=== PATIENT | male | born 1935 | race Caucasian/White ===

== ENCOUNTER 2024-05-07 06:08 | Observation (INO) ==
[2024-04-29 14:15] LABS: Basophils # (Auto) 0.03 K/mcL (0.00-0.30); Basophils % (Auto) 0.4 % (0.0-2.0); Eosinophils # (Auto) 0.43 K/mcL (0.00-0.70); Eosinophils % (Auto) 6.4 % (0.0-7.0); Hematocrit 41.3 % (40.1-51.0); Hemoglobin 13.7 g/dL (13.7-17.5); Lymphocytes % (Auto) 22.4 % (15.5-49.0); Mean Cell Volume 95.2 fL (80.0-100.0); Mean Corpuscular HGB Conc 33.2 g/dL (31.0-36.0); Mean Platelet Volume 9.4 fL (8.8-12.5); Monocytes # (Auto) 0.68 K/mcL (0.10-0.90); Monocytes % (Auto) 10.2 % (1.0-12.0); Neutrophils % (Auto) 60.3 % (38.0-78.0); Platelet Count 198 K/mcL (140-440); RBC 4.34 M/mcL (4.63-6.08); Red Cell Distribution Width 12.8 % (11.5-14.5); WBC 6.7 K/mcL (4.5-11.0)
[2024-04-29 14:34] LABS: Blood Urea Nitrogen 27 mg/dL (8-23); Calcium 9.6 mg/dL (8.6-10.4); Carbon Dioxide 28 mmol/L (22-30); Chloride 105 mmol/L (96-108); Glomerular Filtration Rate 38; Glucose 133 mg/dL (70-105); Potassium 4.1 mmol/L (3.3-5.1); Sodium 143 mmol/L (133-145)
[2024-04-29 17:05] LABS: Estimated Average Glucose(eAG) 128 mg/dL; Hemoglobin A1C 6.1 % Hgb (4.0-6.0)
[2024-05-07] MEDS ORDERED: DEXAMETHASONE 10 MG/ML VIAL ONE (06:52)
[2024-05-07] MEDS ORDERED: KETAMINE 50 MG/ML Syringe IV ONE (06:52)
[2024-05-07] MEDS ORDERED: PROPOFOL 200 MG/20 ML VIAL IV ONE (06:52)
[2024-05-07] MEDS ORDERED: ONDANSETRON 4 MG/2 ML VIAL ONE (06:52)
[2024-05-07] MEDS ORDERED: LIDOCAINE 2% PF 5 ML VIAL ONE (06:52)
[2024-05-07] MEDS: ceFAZolin 2 GM in DEXTROSE 5% IN WATER 50 ML IV SCH (06:55)
[2024-05-07] MEDS ORDERED: MAGNESIUM SULFATE 2 GM/50 ML BAG IV ONE (06:56)
[2024-05-07] MEDS ORDERED: GLYCOPYRROLATE 0.2 MG/ML VIAL IV ONE (07:09)
[2024-05-07] MEDS ORDERED: PHENYLEPHRINE 10 MG/ML VIAL ONE (07:36)
[2024-05-07] MEDS: LIDOCAINE 2% URO-JET 10 ML JEL.PF.APP UR ONE (08:00)
[2024-05-07] MEDS ORDERED: MAGNESIUM HYDROXIDE 30 ML ORAL.SUSP PO PRN (08:19)
[2024-05-07] MEDS ORDERED: ONDANSETRON 4 MG/2 ML VIAL IV PRN (08:19)
[2024-05-07] MEDS ORDERED: BISACODYL 10 MG SUPP.RECT PR PRN (08:19)
[2024-05-07] MEDS ORDERED: HYDROcodone/APAP 5/325MG TABLET PO PRN (08:19)
[2024-05-07] MEDS ORDERED: MAG HYDROX/AL HYDROX/SIMETH 30 ML ORAL.SUSP PO PRN (08:19)
[2024-05-07] MEDS ORDERED: IPRATROPIUM/ALBUTEROL 3 ML AMPUL.NEB NEB PRN (08:19)
[2024-05-07] MEDS: ACETAMINOPHEN 1,000 MG/100 ML BAG IV ONE (08:28)
[2024-05-07] MEDS: OXYBUTYNIN CHLORIDE 5 MG TAB.XL.24H PO SCH (10:07)
[2024-05-07] MEDS: DEXTROSE 5%-NS 1,000 ML IV SCH (10:07)
[2024-05-07] MEDS: SULFAMETHOXAZOLE/TRIMETHOPRIM 1 TABLET PO SCH (10:07)
[2024-05-07] MEDS: 0.9 % SODIUM CHLORIDE 10 ML SYRINGE IV SCH (13:44)
[2024-05-08 07:03] LABS: Hematocrit 32.1 % (40.1-51.0); Hemoglobin 11.1 g/dL (13.7-17.5); Mean Corpuscular HGB Conc 34.6 g/dL (31.0-36.0); Platelet Count 163 K/mcL (140-440); RBC 3.45 M/mcL (4.63-6.08); Red Cell Distribution Width 12.9 % (11.5-14.5); WBC 11.5 K/mcL (4.5-11.0)
[2024-05-08 07:32] LABS: Blood Urea Nitrogen 28 mg/dL (8-23); Calcium 8.5 mg/dL (8.6-10.4); Carbon Dioxide 24 mmol/L (22-30); Chloride 108 mmol/L (96-108); Glomerular Filtration Rate 41; Glucose 152 mg/dL (70-105); Potassium 3.5 mmol/L (3.3-5.1); Sodium 141 mmol/L (133-145)
[2024-05-08] MEDS: ATORVASTATIN 10 MG TABLET PO SCH (21:11)
[2024-05-08] MEDS: ATENOLOL 25 MG TABLET PO SCH (21:11)
[2024-05-08] MEDS: amLODIPine 5 MG TABLET PO SCH (21:12)
[2024-05-08] MEDS: TAMSULOSIN 0.4 MG CAPSULE PO SCH (21:14)
[2024-05-08] MEDS: FINASTERIDE 5 MG TABLET PO SCH (21:14)
[2024-05-08] MEDS: ALLOPURINOL 100 MG TABLET PO SCH (21:14)
[2024-05-09 07:04] VITALS: O2SAT 98
[2024-05-09] MEDS: LEVOTHYROXINE 50 MCG TABLET PO SCH (07:19)
[2024-05-09] MEDS: ALLOPURINOL 100 MG TABLET PO SCH (09:08)
[2024-05-09] MEDS: HYDROCHLOROTHIAZIDE 25 MG TABLET PO SCH (09:08)
[2024-05-09 11:19] VITALS: TEMP 97.9
== END 2024-05-09 11:18 | disposition home or self-care (01) ==
LOC: SUR 06:08 → MEDSUR 06:08
PROVIDERS: ADMIT Urology; ATTEND Urology